=== PATIENT | male | born 1990 | race Caucasian/White ===

== ENCOUNTER 2021-07-20 18:18 | Inpatient (IN) | payer SELFPAY ==
[2021-07-20 18:22] VITALS: BP 133/87; PULSE 83; RESP 16; TEMP 36.7; O2SAT 100
[2021-07-20 18:25] VITALS: BMI 18.2
[2021-07-20] MEDS: LORazepam 2 mg Tablet PO ×2 (18:53→20:16)
[2021-07-20 20:07] VITALS: BP 137/92; PULSE 120; RESP 19; TEMP 36.6; O2SAT 97
[2021-07-20] MEDS: nicotine 2 mg Gum BUCCAL (20:16)
[2021-07-20 20:33] LABS: Alcohol Level < 10 mg/dL (0-10)
[2021-07-21 06:00] VITALS: BP 122/78; PULSE 93; RESP 16; TEMP 36.9; O2SAT 98
[2021-07-21] MEDS: acetaminophen 325 mg Tablet 650 MG PO ×2 (06:23→19:47)
[2021-07-21] MEDS: LORazepam 2 mg Tablet PO ×4 (06:23→19:47)
[2021-07-21] MEDS: thiamine 100 mg Tablet PO (09:17)
[2021-07-21] MEDS: folic acid 1 mg Tablet PO (09:17)
[2021-07-21] MEDS: multivitamin therapeutic Tablet 1 TAB PO (09:18)
[2021-07-21] MEDS: nicotine 2 mg Gum BUCCAL ×2 (09:26→15:28)
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
[2021-07-21 14:00] VITALS: BP 117/69; PULSE 80; RESP 20; TEMP 36.3; O2SAT 98
[2021-07-21] MEDS: escitalopram 10 mg Tablet PO (14:07)
[2021-07-21 19:28] VITALS: BP 117/77; PULSE 80; RESP 18; TEMP 37.1; O2SAT 100
--- NOTE | 2021-07-21 20:37 | PC.NURSE ---
pt resting quietly in room with both eyes closed at this time.
[2021-07-22] MEDS: trazodone 50 mg Tablet PO (01:23)
[2021-07-22] MEDS: hyDROXYzine 25 mg Capsule 50 MG PO (01:23)
[2021-07-22 06:00] VITALS: BP 110/67; PULSE 112; RESP 16; TEMP 36.7; O2SAT 97
[2021-07-22] MEDS: OLANZapine 5 mg ODT PO (08:06)
[2021-07-22] MEDS: acetaminophen 325 mg Tablet 650 MG PO (08:11)
[2021-07-22] MEDS: multivitamin therapeutic Tablet 1 TAB PO (08:11)
[2021-07-22] MEDS: escitalopram 10 mg Tablet PO (08:11)
[2021-07-22] MEDS: folic acid 1 mg Tablet PO (08:11)
[2021-07-22] MEDS: thiamine 100 mg Tablet PO (08:11)
[2021-07-22] MEDS: nicotine 2 mg Gum BUCCAL (13:49)
[2021-07-22 14:00] VITALS: BP 130/86; PULSE 82; RESP 18; TEMP 36.4; O2SAT 96
--- NOTE | 2021-07-22 17:07 | P.NPUPN_ITS ---
Subjective NPU Subjective: Interval history: Patient today reporting that he is feeling a little better. He is working with social work team on an appropriate sober living treatment. He reports that given his responsibilities he cannot do a long 6-month/year program but he does believe in a month program. We reported that we would work with social work team to see what is available as he looking at options in [place]. He denies any issues with the Lexapro that was started from standpoint side effects. Mental Status Exam MSE Comments: This is an underweight, white male, with hospital scrubs on, with adequate grooming and eye contact. No abnormal movements except for some tremulousness likely from alcohol withdrawal. Cooperative with exam in no acute distress. Speech was normal rate and volume. Mood described as feeling a little better; affect congruent. Thought process, organized. Thought content: patient denied any suicidal or homicidal ideation, there were no delusions reported or noted, patient denied any auditory or visual hallucinations. Attention, concentration, and memory appear intact but none were formally tested. He is alert and oriented times three. Insight and judgment appear fair, and impulse control is limited. Vitals/I&O/Wt Last Vital Signs Temp 97.9 F 07/22/21 22:00 Pulse 76 07/22/21 22:00 Resp 18 07/22/21 22:00 BP 122/83 07/22/21 22:00 Pulse Ox 97 07/22/21 22:00 Data NPU : 07/21/21 09:40 A&P Additional A&P Information (1) Major depression, recurrent: (2) Alcohol dependence: Additional A&P Information This is a 30-year-old, white male, with a history of childhood trauma, mental health treatment in his youth and late adolescence, with addiction issues, with current active alcohol addiction, who presents after reports of suicidal ideations, and thoughts of self harm, with recent challenges in his home life. 1. Continue current medication. 2. Started Lexapro 10 mg po qam. 3. Encourage individual, group, and milieu therapy. 4. Continue q-15 minute checks for safety. 5. Continue CIWA protocol. 6. Recommend sober living treatment at the highest level of care to which the patient is willing to commit. Involuntary Hold Information 96 Hour Hold: 96 Hour Involuntary Admission: No Attestations NPU Medical Necessity Statement*: Inpatient hospitalization is medically necessary and the clinically appropriate intervention, at this time. We will monitor medications and make changes as indicated. Likely length of stay is 2-4 days. Coding Level of Care Code Acute Screen Printing Machine Operator for Shari Fabian
[2021-07-22 22:00] VITALS: BP 122/83; PULSE 76; RESP 18; TEMP 36.6; O2SAT 97
[2021-07-22 22:33] LABS: Amphetamines Level NEGATIVE ng/mL (<500); Barbiturates NEGATIVE ng/mL (<300); Benzodiazepines POSITIVE ng/mL (<100); Cocaine Metabolite NEGATIVE ng/mL (<150); Marijuana Metabolite POSITIVE ng/mL (<20); Methadone Metabolite NEGATIVE ng/mL (<100); Opiates NEGATIVE ng/mL (<100); Oxidant NEGATIVE mcg/mL (<200); Phencyclidine NEGATIVE ng/mL (<25); Urine pH 6.9 (4.5-9.0)
[2021-07-23 06:00] VITALS: BP 105/66; PULSE 76; RESP 18; TEMP 36.6; O2SAT 98
[2021-07-23] MEDS: nicotine 2 mg Gum BUCCAL (07:36)
[2021-07-23] MEDS: thiamine 100 mg Tablet PO (08:42)
[2021-07-23] MEDS: escitalopram 10 mg Tablet PO (08:42)
[2021-07-23] MEDS: folic acid 1 mg Tablet PO (08:42)
[2021-07-23] MEDS: multivitamin therapeutic Tablet 1 TAB PO (08:42)
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
[2021-07-23 16:23] VITALS: BP 105/66; PULSE 76; RESP 18; TEMP 36.6; O2SAT 98
== END 2021-07-23 16:31 | disposition home or self-care (01) | DRG 885 ==
PROVIDERS: Admitting Provider Psychiatry & Neurology Psychiatry; Visit Provider Psychiatry & Neurology Psychiatry
DX: F33.9 Major depressive disorder, recurrent, unspecified (principal); R45.851 Suicidal ideations; F10.239 Alcohol dependence with withdrawal, unspecified; F17.210 Nicotine dependence, cigarettes, uncomplicated; F17.290 Nicotine dependence, other tobacco product, uncomplicated; Z63.0 Problems in relationship with spouse or partner
CPT/HCPCS: 36415; 80307; 96372; 97150; 97165; J3411